=== PATIENT | male | born 1955 | race Caucasian/White ===

== ENCOUNTER 2017-03-22 04:38 | Emergency (ER) | payer OTHER ==
[~2017-03-22] VITALS: Ht 182.9 cm; Wt 101.2 kg
[2017-03-22 04:50] VITALS: BP 120/84
[2017-03-23] MEDS ORDERED: DIPH50TA9 PO (10:47)
[2017-03-23] MEDS ORDERED: OMEP20CA74 PO (10:47)
[2017-03-23] MEDS ORDERED: RANI-226 PO (10:47)
[2017-03-23] MEDS ORDERED: CEPH-37 PO (10:47)
[2017-03-23] MEDS ORDERED: OXYM0.0594 (14:24)
== END 2017-03-22 05:10 | disposition home or self-care (01) ==
LOC: ER 04:47
DX: L03.211 Cellulitis of face (principal); K21.9 Gastro-esophageal reflux disease without esophagitis

== ENCOUNTER 2017-03-23 07:35 | Inpatient (IN) | payer OTHER ==
[~2017-03-23] VITALS: Ht 182.9 cm; Wt 101.3 kg
[2017-03-23] MEDS ORDERED: VANCOMYCIN 1GM/250ML 250 ML IV ONE (08:15)
[2017-03-23] MEDS ORDERED: SODIUM CHLORIDE 0.9% 1,000 ML IV ONE (08:15)
[2017-03-23] MEDS ORDERED: methylPREDNISolone SOD SUCC 125 MG/2 ML VL IV ONE ×2 (08:15→12:30)
[2017-03-23] MEDS ORDERED: CLINDAMYCIN 600MG IV 50 ML IV ONE (08:15)
[2017-03-23] MEDS ORDERED: KETOROLAC TROMETH 30 MG/ML 1ML VIAL IV ONE (08:15)
[2017-03-23 08:45] LABS: Basophils # (auto) 0 uL; Eosinophils # (auto) 0.1 uL; Eosinophils % (auto) 2.4 % (0.0-7.0); Hemoglobin 15.7 g/dL (13.5-17.5); Lymphocytes # (auto) 0.9 uL; Lymphocytes % (auto) 19.5 % (10.0-50.0); Mean Corpuscular Hgb Conc. 34.2 g/dL (32.0-36.0); Mean Corpuscular Volume 96.5 fL (80.0-100.0); Monocytes # (auto) 0.8 uL; Monocytes % (auto) 17.7 % (0.0-12.0); Neutrophils # (auto) 2.8 uL; Neutrophils % (auto) 59.4 % (37.0-80.0); Nucleated Red Blood Cells % 0.1 %; Platelet Count (auto) 223 10^3/uL (140-450); Red Blood Cells 4.77 10^6/uL (4.5-5.90); Red Cell Distribution Width 13.3 % (11.8-14.3); White Blood Cell 4.8 10^3/uL (4.4-10.8)
[2017-03-23 09:03] LABS: BUN/Creatinine Ratio 11.6; Potassium 3.9 mmol/L (3.5-5.1)
[2017-03-23 09:12] LABS: Bilirubin, Total 0.8 mg/dL (0.2-1.0)
[2017-03-23] MEDS ORDERED: ONDANSETRON HCL 4 MG/2 ML VIAL IV PRN (10:45)
[2017-03-23] MEDS ORDERED: MORPHINE SULFATE 10 MG/ML INJ 1ML SDV IV PRN (10:45)
[2017-03-23] MEDS ORDERED: HYDROcodone-ACET 5/325MG TAB PO PRN (10:45)
[2017-03-23] MEDS ORDERED: CEPH-37 PO (10:47)
[2017-03-23] MEDS ORDERED: OMEP20CA74 PO (10:47)
[2017-03-23] MEDS ORDERED: RANI-226 PO (10:47)
[2017-03-23] MEDS ORDERED: DIPH50TA9 PO (10:47)
[2017-03-23] MEDS ORDERED: diphenhdrAMINE HCL 50 MG/1 ML VL IV ONE (12:30)
[2017-03-23] MEDS ORDERED: CLINDAMYCIN 600MG IV 50 ML IV SCH (14:00)
[2017-03-23] MEDS ORDERED: OXYM0.0594 (14:24)
[2017-03-23 14:27] VITALS: BP 132/89
[2017-03-23] MEDS ORDERED: cefTRIAXone 1GM/50ML D5W 50 ML IV ONE (14:30)
[2017-03-23] MEDS ORDERED: VANCOMYCIN PER PHARMACY 0 MG IV SCH (14:30)
[2017-03-23] MEDS: metroNIDAZOLE 500MG/100ML 100 ML IV SCH ×2 (16:00→21:42)
[2017-03-23] MEDS: VANCOMYCIN 1GM/250ML 250 ML IV SCH (17:02)
[2017-03-23 20:53] LABS: Urine Bacteria NONE SEEN /hpf (None Seen); Urine Blood Negative /uL (Negative); Urine Mucus FEW (None Seen); Urine Specific Gravity 1.011 (1.001-1.035); Urine WBC <1 /hpf (0 - 3)
[2017-03-23 22:00] VITALS: BP 123/72
[2017-03-24] MEDS: VANCOMYCIN 1GM/250ML 250 ML IV SCH ×2 (00:32→09:57)
[2017-03-24 05:19] VITALS: BP 130/72
[2017-03-24] MEDS: metroNIDAZOLE 500MG/100ML 100 ML IV SCH ×3 (06:06→23:07)
[2017-03-24 07:35] LABS: Basophils # (auto) 0 uL; Basophils % (auto) 0.1 % (0.0-2.0); Eosinophils # (auto) 0 uL; Hematocrit 42.7 % (41.0-53.0); Hemoglobin 14.8 g/dL (13.5-17.5); Lymphocytes # (auto) 0.7 uL; Lymphocytes % (auto) 7.7 % (10.0-50.0); Mean Corpuscular Hemoglobin 33.4 pg (28.0-32.0); Mean Corpuscular Hgb Conc. 34.6 g/dL (32.0-36.0); Mean Corpuscular Volume 96.7 fL (80.0-100.0); Monocytes # (auto) 0.8 uL; Monocytes % (auto) 8.8 % (0.0-12.0); Neutrophils % (auto) 83.4 % (37.0-80.0); Nucleated Red Blood Cells % 0.1 %; Platelet Count (auto) 279 10^3/uL (140-450); Red Blood Cells 4.42 10^6/uL (4.5-5.90); Red Cell Distribution Width 13.4 % (11.8-14.3); White Blood Cell 9.6 10^3/uL (4.4-10.8)
[2017-03-24 07:47] LABS: INR 1.01 (0.9-1.15); Partial Thromboplastin Time 28.4 sec (22.64-33.71)
[2017-03-24 07:54] LABS: BUN/Creatinine Ratio 14.1; Calcium 9.5 mg/dL (8.5-10.1); Potassium 4.5 mmol/L (3.5-5.1)
[2017-03-24 08:00] VITALS: BP 133/86
[2017-03-24 08:05] VITALS: BP 133/86
[2017-03-24] MEDS: cefTRIAXone 1GM/50ML D5W 50 ML IV SCH (08:45)
[2017-03-24] MEDS: PANTOPRAZOLE 40 MG TAB PO SCH (08:45)
[2017-03-24] MEDS ORDERED: CLINDAMYCIN 600MG IV 50 ML IV ONE (10:00)
[2017-03-24] MEDS ORDERED: FLORASTOR (S. BOULARDII) 250 MG CAP PO SCH (10:00)
[2017-03-24 12:12] VITALS: BP 142/86
[2017-03-24] MEDS: CLINDAMYCIN 600MG IV 50 ML IV SCH ×2 (12:13→18:53)
[2017-03-24 16:43] VITALS: BP 135/85
[2017-03-24 22:09] VITALS: BP 145/81
[2017-03-25] MEDS: CLINDAMYCIN 600MG IV 50 ML IV SCH ×3 (02:31→18:19)
[2017-03-25 05:50] VITALS: BP 125/75
[2017-03-25] MEDS: metroNIDAZOLE 500MG/100ML 100 ML IV SCH (06:54)
[2017-03-25 07:03] LABS: Basophils # (auto) 0 uL; Basophils % (auto) 0.6 % (0.0-2.0); Eosinophils # (auto) 0 uL; Eosinophils % (auto) 0.7 % (0.0-7.0); Hematocrit 40.8 % (41.0-53.0); Hemoglobin 13.9 g/dL (13.5-17.5); Lymphocytes # (auto) 1.8 uL; Lymphocytes % (auto) 28.2 % (10.0-50.0); Mean Corpuscular Hemoglobin 33.1 pg (28.0-32.0); Mean Corpuscular Volume 97.2 fL (80.0-100.0); Monocytes # (auto) 0.7 uL; Monocytes % (auto) 11.8 % (0.0-12.0); Neutrophils # (auto) 3.7 uL; Neutrophils % (auto) 58.7 % (37.0-80.0); Nucleated Red Blood Cells % 0.1 %; Platelet Count (auto) 254 10^3/uL (140-450); Red Blood Cells 4.19 10^6/uL (4.5-5.90); Red Cell Distribution Width 13.3 % (11.8-14.3); White Blood Cell 6.3 10^3/uL (4.4-10.8)
[2017-03-25 09:00] VITALS: BP 120/76
[2017-03-25] MEDS: PANTOPRAZOLE 40 MG TAB PO SCH (09:15)
[2017-03-25] MEDS: cefTRIAXone 1GM/50ML D5W 50 ML IV SCH (09:20)
[2017-03-25 13:00] VITALS: BP 115/72
[2017-03-25 17:00] VITALS: BP 129/71
[2017-03-25 22:00] VITALS: BP 124/76
[2017-03-26] MEDS: CLINDAMYCIN 600MG IV 50 ML IV SCH ×3 (02:40→18:36)
[2017-03-26 05:00] VITALS: BP 105/75
[2017-03-26 06:30] LABS: Potassium 4.2 mmol/L (3.5-5.1)
[2017-03-26] MEDS ORDERED: PAPAVERINE HCL 60 MG/2 ML 2ML VIAL ONE (06:35)
[2017-03-26] MEDS ORDERED: HEPARIN 1,000 UNITS/ml 1ML VIAL ONE (06:35)
[2017-03-26] MEDS ORDERED: BACITRACIN TOP OINT 1 UD PKG TOP ONE (06:35)
[2017-03-26] MEDS ORDERED: BACITRACIN INJ 50000 UNIT VIAL ONE (06:35)
[2017-03-26] MEDS ORDERED: NEOMYCIN-BACITRACIN-POLYM 15GM TOP OINT TOP ONE (06:36)
[2017-03-26 06:38] LABS: BUN/Creatinine Ratio 16.2
[2017-03-26] MEDS: cefTRIAXone 1GM/50ML D5W 50 ML IV SCH (08:31)
[2017-03-26 09:00] VITALS: BP 120/82
[2017-03-26] MEDS: PANTOPRAZOLE 40 MG TAB PO SCH (09:35)
[2017-03-26 13:00] VITALS: BP 136/75
[2017-03-26 16:29] VITALS: BP 118/71
[2017-03-26 21:54] VITALS: BP 127/75
[2017-03-27] MEDS: CLINDAMYCIN 600MG IV 50 ML IV SCH ×2 (02:15→09:46)
[2017-03-27 05:00] VITALS: BP 109/70
[2017-03-27] MEDS: cefTRIAXone 1GM/50ML D5W 50 ML IV SCH (08:55)
[2017-03-27] MEDS: PANTOPRAZOLE 40 MG TAB PO SCH (09:46)
== END 2017-03-27 11:25 | disposition home or self-care (01) | DRG 383 ==
LOC: ER 07:35 → OVERFLOW 07:36 → EAST 14:07 → CENTRAL 15:57
PROVIDERS: ADMIT Internal Medicine; ATTEND Internal Medicine
DX: L03.211 Cellulitis of face (principal); G30.9 Alzheimer's disease, unspecified; F02.80 Dementia in other diseases classified elsewhere, unspecified severity, without behavioral disturbance, psychotic disturbance, mood disturbance, and anxiety; J34.0 Abscess, furuncle and carbuncle of nose; K04.7 Periapical abscess without sinus; K21.9 Gastro-esophageal reflux disease without esophagitis; Z79.899 Other long term (current) drug therapy
CPT/HCPCS: 36415; 70486; 80048; 80053; 80202; 81001; 83036; 85025; 85610; 85730; 87040; 87081; 96365; 96368; 96375; J0696; J1885; J2440; J3490